=== PATIENT | female | born 1950 | race Caucasian/White ===

== ENCOUNTER 2018-11-30 00:26 | Outpatient (CLI) | payer MEDICARE, OTHER, SELFPAY ==
--- NOTE | 2018-11-30 13:00 | DI.MAMMO_ITS ---
SYMPTOM/DIAGNOSIS: SCREENING, Z12.31 MAMMOGRAMS: Mammograms were interpreted according to the usual protocol including computer analysis with CAD system, tomosynthesis and C view imaging. Comparison is with the prior examinations. No suspicious masses or microcalcifications are seen. There is no definite evidence of malignancy. IMPRESSION: Negative mammogram. Routine screening is recommended. Category 1. Breast density B. MQSA ASSESSMENT OF FINDINGS: Negative. Category 1. Patient will receive a letter notifying them of these results. BI-RADS category B. There are scattered areas of fibroglandular density.
== END 2018-11-30 00:46 ==
PROVIDERS: PCP Family Medicine; Visit Provider Family Medicine
DX: Z12.31 Encounter for screening mammogram for malignant neoplasm of breast (principal)
CPT/HCPCS: 77063; 77067

== ENCOUNTER 2021-10-04 16:53 | Outpatient (REF) | payer MEDICARE, OTHER, SELFPAY ==
[2021-10-04 19:06] LABS: Bilirubin Negative (Negative); Blood Trace-intact (Negative); Clarity Clear (Clear); Glucose Negative (Negative); Ketones Negative (Negative); Leukocyte Esterase Trace (Negative); Nitrite Negative (Negative); Specific Gravity 1.015 (1.005-1.025); Urobilinogen 0.2 EU/dL (Up TO 0.2)
[2021-10-04 19:12] LABS: Bacteria Negative HPF (Negative); C & S Indicated? No; Casts Negative LPF (Negative); Crystals Negative HPF (Negative); Epithelial Cells Few HPF (Negative); Mucus Negative (Negative); RBC 0-2 HPF (0-2); WBC 0-2 HPF (0-5)
== END 2021-10-04 16:54 | disposition home or self-care (01) ==
LOC: LBN 16:53
PROVIDERS: PCP Family Medicine; Visit Provider Family Medicine
DX: R10.9 Unspecified abdominal pain (principal)
CPT/HCPCS: 81003; 81015

== ENCOUNTER 2021-10-14 01:11 | Outpatient (CLI) | payer MEDICARE, OTHER, SELFPAY ==
--- NOTE | 2021-10-14 07:00 | DI.CT_ITS ---
Exam(s) CT ABDOMEN PELVIS W EXAM: CT ABDOMEN PELVIS W CLINICAL HISTORY: ? diverticulosis,abd pain,r10.9,k57.30. TECHNIQUE: Imaging Protocol: Axial computed tomography images with coronal and sagittal reformatted images were created and reviewed CONTRAST MATERIAL: Intravenous: Omnipaque 100cc Oral: Oral contrast was administered for bowel opacification COMPARISON: No exams were available for comparison FINDINGS: VISUALIZED LUNG BASES: No nodules nor pleural effusions evident. ABDOMEN: There is no ascites. LIVER: There are no focal hepatic lesions evident . GALLBLADDER/BILIARY: No obvious gallbladder pathology. CBD is not dilated. PANCREAS: No evidence of pancreatic mass nor dilatation of the pancreatic duct. SPLEEN: Spleen is not enlarged. No obvious intrasplenic lesions. Splenic and portal veins are paten t. ADRENALS: Slight thickening the medial limb noted. Lateral remarkable. There are no significant fin dings in the left adrenal gland. KIDNEYS:No cysts evident. No solid renal masses. No calculi nor hydronephrosis.. ABDOMINAL AORTA: Abdominal aorta is not enlarged. LYMPH NODES:There is no retroperitoneal nor paraaortic adenopathy. ABDOMINAL WALL: No evidence of significant anterior abdominal wall nor inguinal hernia. GI: There is no evidence of bowel obstruction, free air, nor abscess. PELVIS: GI: No evidence of appendicitis.There is abundant fecal material noted throughout the colon. No evid ence of diverticulosis. No diverticulitis. LYMPH NODES: There is no intrapelvic nor inguinal adenopathy. REPRODUCTIVE: Uterus and adnexal regions appear unremarkable. There is no free fluid in the pelvis. URINARY BLADDER: No calculi nor obvious masses evident OSSEOUS: No significant osseous lesions. There is mild compression fracture at superior endplate of T12, approximately 20 percent, age indeter minate. IMPRESSION: 1. There is abundant fecal material noted throughout the colon. Probable constipation no evidence of obvious significant diverticular disease. No obvious colitis pattern. 2. Mild compression fracture at superior endplate of T12 approximately 20 percent height loss, age in determinate. RADIATION DOSE DELIVERED: 953.22mGy.cm Total DLP DATA REPOSITORY: All CT scans at this facility are submitted to the National Radiology Data Registry (NRDR) Dose Index Registry (DIR) with the [employer] (A[employer]). RADIATION OPTIMIZATION: All CT scans at this facility use at least one of these dose optimization te chniques: automated exposure control; mA and/or kV adjustment per patient size (includes targeted exa ms where dose is matched to clinical indication); or iterative reconstruction.
[2021-10-14 09:49] LABS: Abs Immature Grans 0.01 10^3/uL (0.0-0.06); Absolute Basophil Count 0.03 10^3/uL (0.0-0.2); Absolute Eosinophil Count 0.07 10^3/uL (0.0-0.7); Absolute Lymphocyte Count 1.52 10^3/uL (1.2-3.4); Absolute Neutrophil Count 2.05 10^3/uL (1.2-6.7); Basophils % 0.8; Eosinophils % 1.8; HCT 45.2 % (36.0-46.0); HGB 14.6 g/dL (11.2-15.7); Immature Grans % 0.3; Lymphocytes % 38.2; MCH 30.4 pg (27.0-33.0); MCHC 32.3 % (32.0-36.0); MCV 94.2 fL (80-95); Monocytes % 7.5; Neutrophils % 51.4; Nucleated RBC 0 %; Platelet Count 276 10^3/uL (130-400); RDW 12.6 % (11.7-14.6); RDW-SD 43.8 fL; WBC 3.98 10^3/uL (4.4-10.8)
[2021-10-14] MEDS: Omnipaque 350 MG/ML 50 ML BTL IJ (09:50)
[2021-10-14 10:09] LABS: ALT 27 U/L (14-59); AST 19 U/L (15-37); Albumin 4.1 g/dL (3.4-5.0); Alkaline Phosphatase 86 U/L (46-116); Anion Gap 5.5 mmol/L (3-11); BUN 18 mg/dL (7-18); Bilirubin, Total 1.1 mg/dL (0.2-1.0); CO2 29.5 mmol/L (21.0-32.0); CREATININE 0.9 mg/dL (0.55-1.02); Calcium 8.5 mg/dL (8.5-10.1); Chloride 105 mmol/L (98-107); Glucose 90 mg/dL (74-106); Potassium 3.6 mmol/L (3.5-5.1); Sodium 140 mmol/L (136-145); TSH (W/Ref FT4) 1.88 uIU/mL (0.36-3.74); Total Protein 7.6 g/dL (6.4-8.2)
[2021-10-14] MEDS: Omnipaque 350 MG/ML 100 ML BTL IJ (10:42)
[2021-10-14] MEDS: Breeza Beverage 473 ML BTL PO (10:44)
== END 2021-10-14 01:31 ==
PROVIDERS: PCP Family Medicine; Visit Provider Family Medicine
DX: R10.31 Right lower quadrant pain; K59.00 Constipation, unspecified
CPT/HCPCS: 80053; 74177; 84443; 85025; J3490; Q9967

== ENCOUNTER 2021-12-03 01:59 | Outpatient (CLI) | payer MEDICARE, OTHER, SELFPAY ==
--- NOTE | 2021-12-03 06:15 | DI.MAMMO_ITS ---
Exam(s) MAMMO SCREENING EXAM: MAMMO SCREENING CLINICAL HISTORY: screening,Z12.39. TECHNIQUE: Bilateral full field digital CC and MLO mammographic images were obtained with 3D tomosyn thesis and utilizing computer aided detection (CAD). COMPARISON: Prior mammograms were reviewed, the most recent being November 2018. FINDINGS: There are no CAD designations There are no new spiculated masses nor malignant appearing microcalcification groups. There is no significant architectural distortion nor skin thickening-retraction. IMPRESSION: No radiographic evidence of malignancy. BI-RADS Category 1 - Negative Breast Density - Category B - Scattered areas of fibroglandular density Breast density Category C or D implies that the patient has dense breast tissue. Dense breast tissue can make it harder to find cancer on a mammogram. Dense breast tissue is also associated with an incr eased risk of breast cancer. This information about the result of the mammogram report was provided to the patient to raise their awareness. Use this report when you speak with the patient about their risks for breast cancer, which includes their family history. At that time, you may recommend additional screening tests (Ultrasoun d or MRI) as these tests may add significant information. A negative radiographic report should not delay biopsy if a dominant or clinically suspicious mass is present. Up to ten percent of cancers are not identified on mammography. A negative report may reinforce clinical impression. Adenosis and dense breasts may obscure an underlying neoplasm. False positive reports average 6 to 10%. Patient will receive a letter notifying them of these results.
--- NOTE | 2021-12-03 06:15 | DI.DEXA_ITS ---
Exam(s) XR DEXA BONE DENSITY W/WO MICHAEL EXAM: XR DEXA BONE DENSITY W/WO MICHAEL CLINICAL HISTORY: osteoporosis,COMP FX T 12, S22.080A TECHNIQUE: Routine DEXA evaluation of the lumbar spine, hip, or forearm. COMPARISON: CT CT ABDOMEN PELVIS W from 10/14/2021 Prior DEXA scan performed October 2005 FINDINGS: Performed on a [employer] unit. Lateral image: Mild wedge compression fracture of T12 noted. This was also evident on CT scan of Lumbar Spine total T-score: -2.0. Prior reading in 2005 was -1.3. Hip total T-score:-1.5. Prior 2006 reading was -0.7 Independent reading at the level of the femoral neck yields at T-score of -2.1. Forearm total T-score: -1.8 IMPRESSION: Bone mineral density measures in the osteopenia range. Fracture risk is moderate. Note: Any spine fracture indicates 5x risk for subsequent spine fracture and 2x risk for subsequent h ip fracture. World Health Organization criteria for BMD interpretation classify patients: Normal...... T- Score at or above -1.0 Osteopenic... T- Score between -1.0 and -2.5 Osteoporosis... T-Score at or below -2.5
== END 2021-12-03 02:19 ==
PROVIDERS: PCP Family Medicine; Visit Provider Family Medicine
DX: S22.080A Wedge compression fracture of T11-T12 vertebra, initial encounter for closed fracture (principal); Z12.31 Encounter for screening mammogram for malignant neoplasm of breast; Z13.820 Encounter for screening for osteoporosis; M85.89 Other specified disorders of bone density and structure, multiple sites
CPT/HCPCS: 77063; 77067; 77080

== ENCOUNTER 2022-12-05 03:11 | Outpatient (CLI) | payer MEDICARE, OTHER, SELFPAY ==
[2022-12-05 12:27] LABS: ALT 27 U/L (14-59); AST 22 U/L (15-37); Albumin 3.9 g/dL (3.4-5.0); Alkaline Phosphatase 77 U/L (46-116); Anion Gap 6.2 mmol/L (3-11); BUN 21 mg/dL (7-18); Bilirubin, Total 0.8 mg/dL (0.2-1.0); CO2 30.8 mmol/L (21.0-32.0); Chloride 103 mmol/L (98-107); Estimated GFR 59.12 (mL/min/1.73m2); Glucose 110 mg/dL (74-106); Sodium 140 mmol/L (136-145)
== END 2022-12-05 03:12 | disposition home or self-care (01) ==
LOC: LOS 03:11
PROVIDERS: PCP Family Medicine; Visit Provider Family Medicine
DX: R42 Dizziness and giddiness (principal); F41.8 Other specified anxiety disorders
CPT/HCPCS: 36415; 80053

== ENCOUNTER → 2023-06-19 14:52 | Outpatient (BNVA) | payer MEDICARE, OTHER, SELFPAY | PROVIDERS: PCP Family Medicine; Referring Provider Family Medicine; Visit Provider Surgery | DX: R19.5 Other fecal abnormalities (principal); K57.30 Diverticulosis of large intestine without perforation or abscess without bleeding ==

== ENCOUNTER → 2023-06-19 16:13 | Outpatient (CLI) | payer MEDICARE, OTHER, SELFPAY ==
--- NOTE | 2023-06-19 15:30 | DI.RAD_ITS ---
Exam(s) XR CHEST 2V PA LATERAL EXAM: XR CHEST 2V PA LATERAL CLINICAL HISTORY: sob/hx of positive Mantoux, R06.02, R76.11. TECHNIQUE: 2D digital imaging was performed. COMPARISON: No exams were available for comparison FINDINGS: 2 views: Heart size is normal. The mediastinum is not widened. Lungs are clear. No infiltrates nor pleural effusions. IMPRESSION: No acute pulmonary findings. DATA REPOSITORY: RADIATION DOSE DELIVERED:
== END ==
PROVIDERS: PCP Family Medicine; Visit Provider Surgery
DX: R06.02 Shortness of breath (principal); R76.11 Nonspecific reaction to tuberculin skin test without active tuberculosis; R19.5 Other fecal abnormalities; K57.30 Diverticulosis of large intestine without perforation or abscess without bleeding
CPT/HCPCS: 99203; 99242; 71046

== ENCOUNTER 2023-06-30 09:58 | Day surgery (SDC) | payer MEDICARE, OTHER, SELFPAY ==
--- NOTE | 2023-06-29 09:30 | PDOC.DSDIS_ITS ---
Date of service: 06/30/23 Time of Service: 11:39 Discharge Plan Disposition Patient Disposition: Home Condition: Good Discharge Details Reason For Visit: Colon scope Attending Provider: Samia Valentine Primary Care Provider: Crystal Oquendo Home Meds and New Rx's Prescriptions: Continued cholecalciferol (vitamin D3) 1,000 unit capsule 1,000 unit PO DAILY fluticasone propionate 50 mcg/actuation spray,suspension 2 spray NS BID PRN (Reason: nasal congestion) Qty: 47.4 4RF saw palmetto 160 mg capsule 160 mg PO DAILY Rx Instructions: give with meal/snack sodium hyaluronate 20 mg capsule 20 mg PO DAILY nortriptyline 50 mg capsule 100 mg PO HS Qty: 180 12RF Rx Instructions: 2 tabs melatonin 5 mg capsule 5 mg PO HS fexofenadine [Payton] 180 MG tablet 180 mg PO DAILY Qty: 90 glucosam-chond kz-qocuqf-vr ac 1 EACH capsule 1 ea PO BID Discontinued polyethylene glycol 3350 17 gram/dose powder 238 g PO ONCE Qty: 238 0RF Rx Instructions: take per colonoscopy instructions bisacodyl [Dulcolax (bisacodyl)] 5 mg tablet,delayed release (DR/EC) 5 mg PO ONCE Qty: 4 0RF Rx Instructions: take per colonoscopy instructions Discharge Instructions Additional Instructions: DSU Colonoscopy Post- Op Instructions Instructions for Everyone who is given Anesthesia: For your safety, please do the following for the next twenty-four (24) hours: *Do Not operate a motor vehicle (car, truck, motorcycle, etc.) *Do Not drink alcoholic beverages or use any recreational drugs for the first 24 hours or while taking pain medications. The medications in your body may have a reaction that can be dangerous. *Do Not make any important decisions or sign any important papers. Findings: Small polyp and diverticula Follow up: My office will send a letter in 2 to 3 weeks time with the results of the pathology 1. No lifting over 20 pounds or strenuous activity for the first 24 hours after your procedure. After 24 hours there are no restrictions on your activity but you may feel fatigued for a few days. 2. After you arrive home you may have a light meal and return to your normal diet as you can tolerate it without feeling sick to your stomach. 3. You may have a bloated, gaseous feeling in your belly (abdomen) after a colonoscopy. Passing gas and belching will help. Walking or lying down on your left side with your knees flexed may relieve the discomfort. Call the office at [phone] (Office) or [phone] (Hospital) right away if you notice any of the following: a.Vomiting of blood or ?coffee ground stools?. b.Rectal bleeding 1Tbsp, blood clots or continuous bleeding. c.Severe belly (abdominal) pain. d.A hard distended belly (abdomen) and an inability to pass gas. 4. Please don?t expect to have a normal BM (bowel movement) for 2-3 days after your procedure. 5. If there are questions regarding the findings of your procedure, please contact your doctor 6. If you are unable to contact your doctor with a problem, contact the hospital at [phone]. 7. Continue all your regular medications unless directed otherwise. I understand the above instructions and have no questions. Signature of Patient or Adult Escort Name of Responsible Adult Escort Signature of Nurse Date/Time Activity:: See above Diet:: See above Discharge Orders Discharge Orders: Discharge Order (Routine); Ordered 06/30/23 Ordered By: Samia Valentine DS: Diagnosis Discharge Diagnosis (1) Positive colorectal cancer screening using Cologuard test: Status: Acute Asessment and Plan: The patient is seen and examined after their colonoscopy.? The patient has been able to pass gas.? They are not having abdominal pain.? They have been able to tolerate liquids and a snack.? They do not have any nausea or vomiting.? They are not having any chest pain or shortness of breath.??? They are not having any rectal bleeding. Their vital signs have been stable-see nursing notes. We discussed findings during their colonoscopy, and any biopsies that were done/polyps that were removed. The patient will be sent a letter with any biopsy results, and when to repeat the colonoscopy.-see discharge instructions. Patient was given explicit instructions to follow-up regarding colonoscopy-refer to discharge instructions.? We reviewed resumption of medications. Patient verbalized understanding and discharged in stable and satisfactory condition- See nursing notes. (2) Restless legs: Status: Chronic (3) Adenomatous colon polyp: Status: Acute
--- NOTE | 2023-06-29 11:16 | W.COLOREPORT ---
Date of service: 06/30/23 Time of Service: 11:30 Colonoscopy Report Date of procedure: 06/30/23 Pre-op diagnosis general: Positive Cologuard Post-op diagnosis procedure note: other (Diverticula and polyps) Surgeon: Samia Valentine Anesthesia Type: General:No Airway Estimated blood loss (mL): 1 Pathology: other Complications: None Disposition: same day Prep: Miralax/Dulcolax Retraction Time: 20 Procedure Description: After informed consent was obtained the patient was taken to the procedure room and placed in a left decubitous position. Monitors were applied and a time out was done. The patients name, date of , procedure, allergies to medications and metal in their body was reviewed. The patient was then sedated. Once sedated and comfortable a rectal exam was done. External exam was normal. Internal exam revealed a normal sphincter tone and no palpable masses. The scope was then introduced and retrofelexed. No internal hemorrhoids were identified. The scope was then advanced to the cecum with difficulty-the colon is very tortuous. We did have to use abdominal pressure to manipulate the scope into the cecum.. The TI and appendiceal orifice were identified. The prep was BBPS 2 in the left and transverse colon and 1 in the right colon for a total of 5. The scope was then slowly retracted over 20 minutes back into the rectum. She had a small flat 5 mm polyp at 80 cm that is removed with a cold biting forcep. She has a few small scattered diverticula in the left and sigmoid colon. There is no signs of active bleeding or infection. Mucosa is pink and healthy with a normal vascular pattern. The scope was removed and the patient was woken up and taken back to Same day surgery in stable condition. The patient tolerated the procedure well and there were no immediate complications. Follow up: The patient does not require any further screening colonoscopies, unless they develop changes in bowel habits or other new gastrointestinal complaints.
--- NOTE | 2023-06-30 06:27 | W.ANESPRE ---
General Info Date of Service Date Performed: 06/30/23 Height: 5 ft 5.5 in Weight: 68.946 kg Body Mass Index (BMI): 24.9 Surgical Procedure: Operation Date: 06/30/23 10:35 Proposed Procedure Side Surgeon dillon Valentine, DO Meds Allergies and Home Medications Allergies Allergy/AdvReac Type Severity Reaction Status Date / Time Sulfa (Sulfonamide Allergy SKIN RASH Verified 06/30/23 09:48 Antibiotics) ciprofloxacin [From Cipro] AdvReac Mild Verified 06/30/23 09:48 DUST Allergy CONGESTION Uncoded 06/30/23 09:48 Home Medication Medication Instructions Recorded fexofenadine 180 mg tablet 180 mg PO DAILY #90 tabs 12/17/12 (Payton) rulndwyaki-cjaavvvrzj-yaogygtj-hyalur 1 ea PO BID 03/20/17 ac 375 mg-300 mg-175 mg-2 mg cap cholecalciferol (vitamin D3) 25 1,000 unit PO DAILY 04/18/19 mcg (1,000 unit) capsule fluticasone propionate 50 2 spray NS BID PRN nasal 11/18/21 mcg/actuation nasal congestion #47.4 grams spray,suspension nortriptyline 50 mg capsule 100 mg PO HS #180 tabs 12/06/22 saw palmetto 160 mg capsule 160 mg PO DAILY 12/06/22 sodium hyaluronate 20 mg capsule 20 mg PO DAILY 12/06/22 melatonin 5 mg capsule 5 mg PO HS 06/19/23 Current Visit Medications: Current Medications Generic Name Dose Route Start Last Admin Trade Name Freq PRN Reason Stop Dose Admin Hyoscyamine Sulfate 0.125 mg 06/30/23 09:29 Hyoscyamine 0.125 Mg Sl/Oral/Chew SL 07/30/23 09:28 DIRECTED PRN Ringer's Solution 1,000 mls @ 80 mls/hr 06/30/23 06:00 IV 07/29/23 23:59 INFUSION [facility] IV Miscellaneous Supplies 1 each 06/30/23 06:00 Iv Access IV 07/29/23 23:59 DIRECTED [facility] Ondansetron HCl 4 mg 06/30/23 09:29 Ondansetron 4 Mg/2 Ml Vial IVP 07/30/23 09:28 Q4H PRN PRN Nausea / Vomiting Sodium Chloride 0 ml 06/30/23 06:00 Normal Saline Flush 10 Ml Syr IV 07/29/23 23:59 PRN PRN Sodium Chloride 0 ml 06/30/23 06:00 Normal Saline 10 Ml Vial IJ 07/29/23 23:59 DIRECTED PRN Sterile Water 0 ml 06/30/23 06:00 Water,Injection,Sterile 10 Ml Vial IJ 07/29/23 23:59 DIRECTED PRN PFSH Active Problems Active Problems: Problem Status Onset Code Positive colorectal cancer screening using Cologuard test R19.5 Shortness of breath R06.02 Restless legs G25.81 Blood pressure instability 03/29/18 I99.8 Anxiety F41.9 Medical History Medical History Abdominal pain Actinic keratosis (09/20/16) Back pain Depressive disorder Diverticula of colon Ganglion of joint Left knee pain (06/25/15) Low back pain (03/24/15) Malignant neoplasm of skin (08/24/04) basal cell Mantoux: positive WTH CALCIFICATION AND CHEST X-RAY patient had a normal chest x-ray on 05/2023 Osteopenia DEXA SHOWING MILD Shoulder pain Skin lesion of face (09/26/17) 1.3 cm raised lesion Stress at home Urinary tract infectious disease recurrent Vertigo Surgical History Surgical History Colonoscopy - MAC (~2000) NEG History of excision of mass MISC SURGERIES 09/2011; cyst removed from right ring finger 11/2010; 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 Tobacco Smoking/Tobacco Use Status: Never Passive smoking exposure: No Second hand exposure: No Alcohol Alcohol Intake: current Alcohol intake frequency: a few times a week Alcohol type: wine Substance Use Substance use: Never Substance use type: does not use Vital Signs and Lab Results Vital Signs Most Recent Vital Signs in EMR: Temp Pulse Resp BP Pulse Ox 36.5 C 77 18 157/74 H 99 06/30/23 10:05 06/30/23 10:05 06/30/23 10:05 06/30/23 10:05 06/30/23 10:05 Lab Results Blood Type / Crossmatch: No Data to Display Complete Blood Count: No Data to Display Complete Metabolic Panel: No Data to Display Liver Function Panel: No Data to Display Coagulation Panel: No Data to Display Cardiac Panel: No Data to Display Arterial Blood Gas: No Data to Display Venous Blood Gas: No Data to Display Pancreas Panel: No Data to Display Thyroid Panel: No Data to Display Infectious Disease: No Data to Display Blood Cultures: No Data to Display Toxicology Panel: No Data to Display Imaging and Studies Imaging and Studies Study information below may be from another EMR and interpreted by another provider. Please see original notes in EMR for more complete details. Stress Test Summary: 10/12: no perfusion defects, lvef 66%. Echocardiogram Summary: 10/12: LVEF 55-60%, no WMA, mild to mod AR, PAS 20-25 mmhg. Anesthesia Assessment and Plan Anesthesia History Personal History: No History of Anesthesia Complications Family History: No Family History of Anesthesia Complications Exercise Tolerance Exercise Tolerance: Metabolic Equivalents>4 Cardiac & Pulmonary Exam Cardiac Exam: Normal S1/S2 Heart Sounds Pulmonary Exam: Clear Bilateral Breath Sounds Implantable Cardiac Device Does patient have a Pacemaker or an ICD?: No Airway Exam Known Difficult Airway: No Mallampati Class: 3 Mouth Opening: Narrow (< 3cm) Thyromental Distance: Greater than 3 cm Neck Range of Motion: Full ROM Neck Circumference: Normal Teeth Condition: Normal Dentition ASA Classification ASA Score: ASA 2 Emergency Case?: No NPO Status NPO Status: NPO Clears >2 hours, Solids >8 hours Anesthesia Plan Resuscitation Status: Full Code Anesthesia Technique: General Anesthesia Airway Planned: Natural Airway Monitors Used: Standard Monitors Preoperative Comments:: 73 yo female for colo. Sig PMHx: vertigo, mantoux positive (negative cxr), never smoker, occ EtOH.
[2023-06-30 10:05] VITALS: BP 157/74; PULSE 77; RESP 18; TEMP 36.5; O2SAT 99
[2023-06-30 10:15] VITALS: BMI 24.9
[2023-06-30] MEDS: Lactated Ringers 1,000 ML 80 ML IV (10:22)
--- NOTE | 2023-06-30 11:04 | BOWEL_PTH ---
PATIENT: Nayana Chavez LOC: [facility] U#:[id number] AGE/SX: 73/F ROOM: RE06/30/[address]: Samia Valentine : 1950 BED: DIS: 06/30/2023 SPEC #: [id number] RECD: 07/03/23 12:10 STATUS: RANDA REQ #: [id number] CARLITOS: 06/30/23 11:[address]: Samia Valentine DEPT: Surgical Specimen RECD BY: Fernanda Vazquez ENTERED: 07/03/23 12:11 SP TYPE: Bowel OTHR DR: Crystal Oquendo MD, DC Tissues: 1 - BIOPSY BOWEL Procedures: GROSS AND MICRO LEVEL 4 Comments: [id number]
[2023-06-30 11:24] VITALS: BP 135/72; PULSE 74; RESP 16; TEMP 35.9; O2SAT 100
--- NOTE | 2023-06-30 11:36 | W.ANESPOSTOP ---
Postoperative Evaluation Date, Time and Location Date Performed: 06/30/23 Time Performed: 11:36 Patient Location: Day Surgery Unit Vital Signs Most Recent Imported Vital Signs: Most Recent Vital Signs Temp Pulse Resp BP Pulse Ox 35.9 C L 74 16 135/72 100 06/30/23 11:24 06/30/23 11:24 06/30/23 11:24 06/30/23 11:24 06/30/23 11:24 Pain Score Most Recent Pain Score: Most Recent Pain Score Pain Level 0 06/30/23 11:24 Assessment Mental Status: Awake (Alert & Oriented to Patient Baseline) Airway and Respiratory Function: Patent airway with normal (patient baseline) respiratory exam Cardiovascular Function: Hemodynamically Stable Hydration Status: Adequately Hydrated Nausea & Vomiting: No Nausea or Vomiting Pain: Pt. Denies Any Pain Peripheral Nerve Block: Patient did not receive a nerve block
[2023-06-30 11:54] VITALS: BP 151/73; PULSE 67; RESP 20; TEMP 36.2; O2SAT 98
== END 2023-06-30 12:08 | disposition home or self-care (01) ==
PROVIDERS: PCP Family Medicine; Visit Provider Surgery
PROC: 0DJD8ZZ Inspection of Lower Intestinal Tract, Via Natural or Artificial Opening Endoscopic (ICD-10-PCS; CPT 45378; principal; 2023-06-30 10:30)
DX: Z12.11 Encounter for screening for malignant neoplasm of colon (principal); R19.5 Other fecal abnormalities; D12.4 Benign neoplasm of descending colon; K57.30 Diverticulosis of large intestine without perforation or abscess without bleeding
CPT/HCPCS: 45380; 88305; J2001

== ENCOUNTER → 2024-01-24 03:07 | Outpatient (CLI) | payer MEDICARE, OTHER, SELFPAY ==
--- NOTE | 2024-01-24 08:00 | DI.MAMMO_ITS ---
Exam(s) MAMMO SCREENING EXAM: MAMMO SCREENING CLINICAL HISTORY: screening,z12.39. TECHNIQUE: Bilateral full field digital CC and MLO mammographic images were obtained with 3D tomosyn thesis and utilizing computer aided detection (CAD). COMPARISON: Prior mammograms were reviewed. FINDINGS: There has been no significant change in the appearance and distribution of the fibroglandular tissue. There are no CAD designations. There is a new group of microcalcifications in the right breast at 12 o'clock position. These have b enign appearance. There are no new spiculated masses nor new malignant appearing microcalcification groups. Benign-appearing nodules laterally in the right breast are unchanged from 2014. There is no significant architectural distortion nor skin thickening-retraction. IMPRESSION: Benign findings. No radiographic evidence of malignancy. BI-RADS Category 2 - Benign Findings Breast Density - Category B - Scattered areas of fibroglandular density Breast density Category C or D implies that the patient has dense breast tissue. Dense breast tissue can make it harder to find cancer on a mammogram. Dense breast tissue is also associated with an incr eased risk of breast cancer. This information about the result of the mammogram report was provided to the patient to raise their awareness. Use this report when you speak with the patient about their risks for breast cancer, which includes their family history. At that time, you may recommend additional screening tests (Ultrasoun d or MRI) as these tests may add significant information. A negative radiographic report should not delay biopsy if a dominant or clinically suspicious mass is present. Up to ten percent of cancers are not identified on mammography. A negative report may reinforce clinical impression. Adenosis and dense breasts may obscure an underlying neoplasm. False positive reports average 6 to 10%. Patient will receive a letter notifying them of these results.
== END ==
PROVIDERS: PCP Family Medicine; Visit Provider Family Medicine
DX: Z12.31 Encounter for screening mammogram for malignant neoplasm of breast (principal)
CPT/HCPCS: 77063; 77067

== ENCOUNTER 2024-08-05 16:11 | Outpatient (CLI) | payer MEDICARE, OTHER, SELFPAY ==
--- NOTE | 2024-08-05 15:45 | DI.RAD_ITS ---
Exam(s) XR THUMB LT EXAM: XR THUMB LT CLINICAL HISTORY: Pain of lt thumb, M79.645, evaluate pathology ? gout vs arthritic changes. TECHNIQUE: 2D digital imaging was performed of the left thumb. Three views were obtained. AP, late ral and oblique views were obtained. COMPARISON: No exams were available for comparison FINDINGS: BONES: No acute fracture is present. No bony destructive lesion is seen. JOINTS: No dislocation present. There are marked degenerative changes seen in the hand particularly t he interphalangeal joints of the 3rd through 5th fingers with joint space narrowing and osteophytes p resent. More mild osteoarthritic changes are seen at the interphalangeal joint of the thumb and the 1st MCP joint. SOFT TISSUE: Normal. IMPRESSION: 1. No acute fracture or dislocation. 2. Osteoarthritis of the thumb. DATA REPOSITORY: RADIATION DOSE DELIVERED:
--- NOTE | 2024-08-05 16:42 | DI.VRAD_ITS ---
PROCEDURE INFORMATION: Exam: XR Left Finger(s) Exam date and time: 08/05/2024 4:14 PM Age: 74 years old Clinical indication: Pain in left thumb ip joint, ? gout vs arthritic changes TECHNIQUE: Imaging protocol: Radiologic exam of the left fingers. Views: Minimum 2 views. COMPARISON: No relevant prior studies available. FINDINGS: Bones/joints: There is mild joint space narrowing noted at the 1st interphalangeal joint and 1st metacarpophalangeal joint. There is also subchondral sclerosis and osteophytosis, suggestive of osteoarthritic changes. Of note, osteoarthritic changes are noted throughout the remainder of the hand, greatest in the 3rd, 4th and 5th distal interphalangeal joint. Soft tissues: No large soft tissue abnormality identified. IMPRESSION: 1. Osteoarthritic changes noted at the 1st interphalangeal joint and metacarpophalangeal joint. 2. Osteoarthritic changes also noted throughout the remainder of the hand, greatest at the distal interphalangeal joints. Dictated and Authenticated by: Bárbara Jerez MD. Ordering:AMELIA East MD
== END 2024-08-05 16:31 ==
LOC: DI 16:20
PROVIDERS: PCP Family Medicine; Visit Provider Nurse Practitioner Family
DX: M19.042 Primary osteoarthritis, left hand (principal)
CPT/HCPCS: 36415; 80053; 73140; 84550; 85025

== ENCOUNTER 2024-08-05 16:22 | Outpatient (CLI) | payer MEDICARE, OTHER, SELFPAY ==
[2024-08-05 16:31] LABS: Abs Immature Grans 0.01 10^3/uL (0.0-0.06); Absolute Basophil Count 0.03 10^3/uL (0.0-0.2); Absolute Eosinophil Count 0.11 10^3/uL (0.0-0.7); Absolute Lymphocyte Count 1.04 10^3/uL (1.2-3.4); Absolute Neutrophil Count 3.08 10^3/uL (1.2-6.7); Basophils % 0.6 %; Eosinophils % 2.4 %; HCT 41.2 % (36.0-46.0); HGB 13.6 g/dL (11.2-15.7); Immature Grans % 0.2 %; Lymphocytes % 22.3 %; MCH 30.8 pg (27.0-33.0); MCV 93 fL (80-95); Monocytes % 8.6 %; Neutrophils % 65.9 %; Platelet Count 238 10^3/uL (130-400); RBC 4.42 10^6/uL (3.93-5.22); RDW 12.5 % (11.7-14.6); RDW-SD 43.3 fL; WBC 4.67 10^3/uL (4.4-10.8)
[2024-08-05 17:48] LABS: ALT 30 U/L (14-59); AST 22 U/L (15-37); Albumin 3.5 g/dL (3.4-5.0); Alkaline Phosphatase 107 U/L (46-116); Anion Gap 9.4 mmol/L (3-11); BUN 15 mg/dL (7-18); Bilirubin, Total 0.39 mg/dL (0.2-1.0); CO2 28.6 mmol/L (21.0-32.0); Calcium 8.6 mg/dL (8.5-10.1); Chloride 106 mmol/L (98-107); Estimated GFR 58.39 (mL/min/1.73m2); Glucose 117 mg/dL (74-106); Potassium 3.8 mmol/L (3.5-5.1); Sodium 144 mmol/L (136-145); Total Protein 6.7 g/dL (6.4-8.2); Uric Acid 4.8 mg/dL (2.6-6.0)
== END 2024-08-05 16:23 | disposition home or self-care (01) ==
LOC: LBO 16:24
PROVIDERS: PCP Family Medicine; Visit Provider Nurse Practitioner Family
DX: I10 Essential (primary) hypertension (principal); M79.645 Pain in left finger(s)
CPT/HCPCS: 36415; 80053; 84550; 85025

== ENCOUNTER 2025-08-07 13:35 | Outpatient (CLI) | payer MEDICARE, OTHER, SELFPAY ==
[2025-08-07 16:47] LABS: ALT 24 U/L (10-49); AST 27 U/L (<34); Albumin 4.2 g/dL (3.4-5.0); Alkaline Phosphatase 87 U/L (46-116); Anion Gap 9.2 mmol/L (3-11); BUN 28 mg/dL (9-23); Bilirubin, Total 0.50 mg/dL (0.2-1.2); CO2 25.8 mmol/L (20.0-31.0); Calcium 9.5 mg/dL (8.3-10.6); Chloride 103 mmol/L (98-107); Glucose 90 mg/dL (74-106); Potassium 4.5 mmol/L (3.5-5.1); Sodium 138 mmol/L (136-145); Total Protein 6.8 g/dL (5.7-8.2)
[2025-08-07 17:24] LABS: Vitamin B12 591 pg/mL (211-911)
[2025-08-07 22:28] LABS: Hepatitis C Ab w Rflx HCV PCR Negative (Negative)
== END 2025-08-07 13:36 | disposition home or self-care (01) ==
LOC: LOS 13:35
PROVIDERS: PCP Family Medicine; Visit Provider Family Medicine
DX: Z11.59 Encounter for screening for other viral diseases (principal); I10 Essential (primary) hypertension; K21.00 Gastro-esophageal reflux disease with esophagitis, without bleeding
CPT/HCPCS: 36415; 80053; 86803; 82607